=== PATIENT | female | born 1975 | race Caucasian/White ===

== ENCOUNTER → 2016-11-11 | Outpatient (CLI) | payer OTHER ==
[~2016-11-11] MED LIST: AUGMENTIN875 MG PO; MEDROXYPRO150 MG/1 M IM
== END | disposition home or self-care (01) ==
DX: R13.10 Dysphagia, unspecified (principal); E89.0 Postprocedural hypothyroidism
CPT/HCPCS: 92611 GN

== ENCOUNTER 2017-04-02 17:25 | Emergency (ER) | payer OTHER ==
[~2017-04-02] VITALS: Ht 170.2 cm; Wt 108.2 kg
[2017-04-02] MEDS ORDERED: KEFLEX500 MG PO (19:53)
[2017-04-02] MEDS ORDERED: NAPROSYN500 MG PO (19:53)
[2017-04-02 20:10] VITALS: BP 143/94
== END 2017-04-02 20:14 | disposition home or self-care (01) ==
LOC: EME 17:25 → EXP 17:25
PROC: 3E0234Z Introduction of Serum, Toxoid and Vaccine into Muscle, Percutaneous Approach (ICD-10-PCS; principal; 2017-04-02)
DX: L03.116 Cellulitis of left lower limb (principal); S90.822A Blister (nonthermal), left foot, initial encounter; X58.XXXA Exposure to other specified factors, initial encounter; Z23 Encounter for immunization; Z85.850 Personal history of malignant neoplasm of thyroid; F17.200 Nicotine dependence, unspecified, uncomplicated
CPT/HCPCS: 99281; 99283